=== PATIENT | male | born 1990 | race African-American/Black ===

== ENCOUNTER 2020-09-30 11:18 | Emergency (ER) | payer SELFPAY ==
[~2020-09-30] VITALS: Ht 182.9 cm; Wt 79.0 kg
[2020-09-30] MEDS ORDERED: BUPIVACAINE HCL/PF 0.5% (5MG/ML) 10ML INFIL ONE (12:15)
[2020-09-30] MEDS ORDERED: HYDROCODONE/ACETAMINOPHEN 5/325MG TABLET PO ONE (12:30)
[2020-09-30] MEDS ORDERED: ONDANSETRON 4MG ODT PO ONE (13:15)
[2020-09-30] MEDS ORDERED: MORPHINE SULFATE 10 MG/ML CPJ IM ONE (13:15)
[2020-09-30] MEDS ORDERED: IBUP-2029 MT (15:03)
[2020-09-30 15:18] VITALS: BP 130/78
== END 2020-09-30 15:19 | disposition home or self-care (01) ==
LOC: ER 11:18
DX: S63.255A Unspecified dislocation of left ring finger, initial encounter (principal); S63.257A Unspecified dislocation of left little finger, initial encounter; W22.8XXA Striking against or struck by other objects, initial encounter; Y93.89 Activity, other specified; Y92.143 Cell of prison as the place of occurrence of the external cause
CPT/HCPCS: 26770; 73130; 96372; 99152; 99285; J2270; J3490; Q0162; Z7610